=== PATIENT | male | born 1955 | race Caucasian/White ===

== ENCOUNTER 2017-09-04 21:45 | Emergency (ER) | payer BC ==
[~2017-09-04] VITALS: Ht 177.8 cm; Wt 74.0 kg
[~2017-09-04 21:45] MED LIST: ASPIRIN EC325 MG PO; ASPIRIN325 MG PO; ATORVASTATIN CA80 MG PO; BENADRYL25 MG PO; CLOPIDOGREL75 MG PO; DOK PLUS TABLE1 EACH PO; EFFIENT10 MG PO; FLOMAX0.4 MG PO; IRON325 M1 PO; LIPITOR80 MG PO; LISINOPRIL5 MG PO; LOPRESSOR50 MG PO; METOPROLOL SUCC50 MG PO; NICOTINE PATCH1 EAC2 TD; NITROSTAT0.4 MG SL; NOHOMEMEDS; OXYCODONE HCL5 MG PO; PERCOCET 10/1 TABLET PO; PERCOCET 5/31 TABLET PO; TORADOL10 MG PO; XARELTO10 MG PO
[2017-09-05 01:33] VITALS: BP 134/75
== END 2017-09-05 01:34 | disposition home or self-care (01) ==
LOC: EME → EDBD 21:45 → EME 21:45
DX: S02.2XXA Fracture of nasal bones, initial encounter for closed fracture (principal); S00.83XA Contusion of other part of head, initial encounter; M54.2 Cervicalgia; Y04.2XXA Assault by strike against or bumped into by another person, initial encounter; Y93.89 Activity, other specified; Y92.009 Unspecified place in unspecified non-institutional (private) residence as the place of occurrence of the external cause; Y07.59 Other non-family member, perpetrator of maltreatment and neglect; Z88.6 Allergy status to analgesic agent; Z88.5 Allergy status to narcotic agent; Z88.8 Allergy status to other drugs, medicaments and biological substances
CPT/HCPCS: 70450; 70486; 72125; 99281; 99283